=== PATIENT | male | born 1965 | race Caucasian/White ===

== ENCOUNTER 2017-07-20 07:31 | Outpatient (CLI) | payer BC, OTHER ==
--- NOTE | 2017-07-20 10:28 | RAD ---
DOUBLE CONTRAST UPPER GI: Date: 07/20/17 INDICATION: History of gastroesophageal reflux disease with need for preop clearance. TECHNIQUE: Thin barium, thick barium, and effervescent crystals were utilized for a double contrast upper GI. To roger fluoroscopic time was 3.3 minutes. Total exposure was 126.27 Gy*cm^2. FINDINGS: The esophagus demonstrated normal mucosal pattern. There were mild tertiary contractions of the mid t o distal esophagus. No intraluminal mass or stricture identified. No reflux was demonstrated during t he examination. 12.5 mm barium tablet passed without difficulty. No intraluminal mass or mucosal abnormality is evident within the stomach or proximal small bowel. IMPRESSION: 1. Mild tertiary contractions of the mid to distal esophagus can be seen with reflux esophagitis or mild presbyesophagus. 2. No definite intraluminal mass or stricture is identified. POS: FELIPE
== END 2017-07-20 07:32 | disposition home or self-care (01) ==
LOC: RAD 07:31
PROVIDERS: ATTEND Specialist
DX: Z01.818 Encounter for other preprocedural examination (principal); K21.9 Gastro-esophageal reflux disease without esophagitis; K22.8 Other specified diseases of esophagus
CPT/HCPCS: 74247

== ENCOUNTER 2017-10-01 11:05 | Outpatient (CLI) | payer OTHER | END 2017-10-01 11:06 | disposition home or self-care (01) | LOC: DTY/OP 11:05 | PROVIDERS: ATTEND Specialist | DX: Z01.818 Encounter for other preprocedural examination (principal); E66.01 Morbid (severe) obesity due to excess calories | CPT/HCPCS: 97802 ==

== ENCOUNTER 2018-05-20 12:38 | Outpatient (CLI) | payer OTHER ==
[2018-05-20 14:28] LABS: Anion Gap 11 mmol/L (10-20); BUN (Urea Nitrogen) 19 mg/dL (8.4-25.7); Calc. Creatinine Clearance 0 mL/min (70-130); Calcium 9.6 mg/dL (7.8-10.44); Carbon Dioxide 27 mmol/L (22-29); Chloride 104 mmol/L (98-107); Estimated GFR-MDRD 69; Glucose 95 mg/dL (70-105); Potassium 3.9 mmol/L (3.5-5.1); Sodium 138 mmol/L (136-145)
--- NOTE | 2018-05-21 09:03 | EKG ---
Test Reason : Blood Pressure : / mmHG Vent. Rate : 058 BPM Atrial Rate : 058 BPM P-R Int : 150 ms QRS Dur : 108 ms QT Int : 414 ms P-R-T Axes : 033 026 002 degrees QTc Int : 406 ms Sinus bradycardia Nonspecific T wave abnormality Abnormal ECG No previous ECGs available Confirmed by DR. Adolfo LEWIS ([id number]) on 05/21/2018 9:03:09 AM Referred By: YAYA Confirmed By:DR. Adolfo LEWIS
== END 2018-05-20 12:39 | disposition home or self-care (01) ==
LOC: LABBT 12:38
PROVIDERS: ATTEND Specialist
DX: Z01.818 Encounter for other preprocedural examination (principal); K21.9 Gastro-esophageal reflux disease without esophagitis; I10 Essential (primary) hypertension; E66.01 Morbid (severe) obesity due to excess calories; Z68.42 Body mass index [BMI] 45.0-49.9, adult
CPT/HCPCS: 80048; 93005; 93010

== ENCOUNTER 2018-05-24 11:00 | Inpatient (IN) | payer OTHER ==
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
[2018-05-26] MEDS ORDERED: Heparin 5,000 UNITS/ML VIAL ONE (06:37)
[2018-05-26] MEDS ORDERED: Ketorolac Tromethamine 30 MG/ML VIAL ONE (06:38)
[2018-05-26] MEDS ORDERED: Bupivacaine HCl 0.5%/Epinephrine 1:200,000/PF 30 ml Vial ONE (06:51)
[2018-05-26] MEDS ORDERED: Fentanyl 100 MCG/2 ML VIAL ONE ×2 (06:51→10:58)
[2018-05-26] MEDS ORDERED: CEFAZOLIN 2 GM/50 ML BAG ONE (07:07)
[2018-05-26] MEDS ORDERED: Rocuronium Bromide 50 MG/5 ML VIAL ONE (09:25)
[2018-05-26] MEDS ORDERED: Ondansetron HCl/PF 4 MG/2 ML Vial IVP PRN (09:56)
[2018-05-26] MEDS ORDERED: Promethazine HCl 25 MG/ML VIAL IM PRN (09:56)
[2018-05-26] MEDS ORDERED: Promethazine HCl 25 MG/ML VIAL SLOW IVP PRN (09:56)
[2018-05-26] MEDS ORDERED: SUGAMMADEX SODIUM 500 MG/5 ML VIAL ONE (10:11)
[2018-05-26] MEDS ORDERED: diphenhydrAMINE 50 MG/ML VIAL IVP PRN (10:26)
[2018-05-26] MEDS ORDERED: hydrALAZINE 20 MG/ML VIAL SLOW IVP PRN (10:26)
[2018-05-26] MEDS ORDERED: Morphine 4 MG/ML VIAL SLOW IVP PRN (10:26)
[2018-05-26] MEDS ORDERED: Morphine 2 MG/ML SYRINGE SLOW IVP PRN (10:26)
[2018-05-26] MEDS ORDERED: Ketorolac Tromethamine 30 MG/ML VIAL IVP PRN (10:31)
[2018-05-26] MEDS ORDERED: Sodium Chloride 0.9% (PF) 10 ML VIAL FS PRN (10:59)
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
[2018-05-26] MEDS ORDERED: Dexamethasone 20 MG/5 ML VIAL ONE (13:28)
[2018-05-26] MEDS ORDERED: Metoclopramide HCl 10 MG/2 ML VIAL ONE (13:28)
[2018-05-26] MEDS ORDERED: Rocuronium Bromide 10 MG/ML (10ML VIAL) ONE (13:28)
[2018-05-26] MEDS ORDERED: PHENYLEPHRINE-NS 100 MCG/ML 10 ML SYRINGE ONE (13:28)
[2018-05-26] MEDS ORDERED: PROPOFOL 200 MG/20 ML VIAL ONE (13:28)
[2018-05-26] MEDS ORDERED: Lidocaine 1% PF 5 ML VIAL ONE (13:28)
[2018-05-26] MEDS ORDERED: ePHEDrine 50 MG/ML VIAL ONE (13:28)
[2018-05-26] MEDS ORDERED: Glycopyrrolate 0.2 MG/ML 5 ML SYRINGE ONE (13:28)
[2018-05-26] MEDS: Lactated Ringer's 1,000 ML IV SCH ×3 (14:13→19:59)
[2018-05-26] MEDS: Acetaminophen 1,000 MG in Premix Bag 1 BAG IVPB SCH ×3 (14:13→21:32)
[2018-05-26 16:28] VITALS: BMI 45.1
[2018-05-26] MEDS: Ondansetron PF 4 MG/2 ML Vial IVP PRN (17:06)
[2018-05-26] MEDS ORDERED: Enoxaparin Sodium 40 MG/0.4 ML SYRINGE SC SCH (21:00)
[2018-05-27] MEDS: Lactated Ringer's 1,000 ML IV SCH (04:05)
[2018-05-27] MEDS: Acetaminophen 1,000 MG in Premix Bag 1 BAG IVPB SCH (04:32)
[2018-05-27 05:22] LABS: #Monocytes 0.8 thou/uL (0.11-0.59); #Neutrophils 8.2 thou/uL (1.40-6.50); %Basophils 0.1 % (0.0-1.0); %Eosinophils 0.4 % (0.0-10.0); %Monocytes 7.5 % (0.0-10.0); Hemoglobin 15.8 g/dL (14.0-18.0); Mean Corpuscular HGB CONC 32.1 g/dL (32.0-36.0); Mean Corpuscular Hemoglobin 28.6 pg (27.0-31.0); Mean Corpuscular Volume 89.1 fL (78.0-98.0); Platelet Count 200 thou/uL (130-400); RBC Distribution Width 12.5 % (11.5-14.5); Red Blood Cell (RBC) Count 5.53 mill/uL (4.70-6.10); White Blood Cell (WBC) Count 11.1 thou/uL (4.8-10.8)
[2018-05-27 06:38] LABS: Anion Gap 15 mmol/L (10-20); BUN (Urea Nitrogen) 10 mg/dL (8.4-25.7); Calc. Creatinine Clearance 149 mL/min (70-130); Calcium 9.3 mg/dL (7.8-10.44); Carbon Dioxide 24 mmol/L (22-29); Chloride 103 mmol/L (98-107); Estimated GFR-MDRD 84; Glucose 95 mg/dL (70-105); Potassium 4.3 mmol/L (3.5-5.1); Sodium 138 mmol/L (136-145)
[2018-05-27] MEDS ORDERED: Pantoprazole 40 MG VIAL IVP SCH (09:00)
[2018-05-27] MEDS ORDERED: Hydrochlorothiazide 25 MG TAB PO SCH (09:00)
[2018-05-27] MEDS ORDERED: Hydrocodone-Acetamin 15 ML UDCUP PO PRN (09:00)
[2018-05-27] MEDS ORDERED: Amlodipine 10 MG TAB PO SCH (09:00)
[2018-05-27] MEDS ORDERED: Aspirin Chewable 81 MG TAB PO SCH (09:00)
[2018-05-27] MEDS: Ondansetron PF 4 MG/2 ML Vial IVP PRN (09:50)
[2018-05-27 11:38] VITALS: TEMP 98.5
[2018-05-27] MEDS ORDERED: traMADol HCl 50 MG TAB PO PRN ×2 (14:23)
[2018-05-27] MEDS ORDERED: Acetaminophen 500 MG TAB PO PRN (14:24)
--- NOTE | 2018-05-27 14:39 | PRG ---
DATE OF SERVICE: 05/27/2018 SUBJECTIVE: Wes Sepulveda is doing well after laparoscopic sleeve gastrectomy, adhesiolysis, and repair of an enterotomy laparoscopically yesterday. He is tolerating his diet. He is not having any significant abdominal pain. OBJECTIVE: VITAL SIGNS: Temperature 98.5 degrees, pulse 57, respiratory rate 18, blood pressure 132/81. LUNGS: Clear to auscultation. CARDIAC: Regular rate and rhythm. No murmur or gallop. ABDOMEN: Soft, obese. Surgical laparoscopic wounds well healed. No wound problems. Good bowel sounds. He has passed flatus. He has not had any nausea, vomiting, or fever. He has good activity level. LABORATORY DATA: This morning, his white count is 11 and hemoglobin 15. Basic metabolic profile normal. ASSESSMENT AND PLAN: The patient is doing well after laparoscopic sleeve gastrectomy, adhesiolysis, and repair of enterotomy laparoscopically. He is discharged home today to continue bariatric liquids per protocol. He will take his vitamins. He is sent home with Lorbrigido Hernandez. He will follow up with me in my office per his appointment in 1 to 2 weeks. He was instructed that there are no activity restrictions and he will follow his dietary progression protocol as instructed. Job ID: [id number]
[2018-05-27 15:54] VITALS: BP 132/82
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
== END 2018-05-27 17:10 | disposition home or self-care (01) | DRG 621 ==
LOC: SURG A 05-26 05:37
PROVIDERS: ADMIT Specialist; ATTEND Specialist
PROC: 0DB64Z3 Excision of Stomach, Percutaneous Endoscopic Approach, Vertical (ICD-10-PCS; principal; 2018-05-26)
PROC: 0DQ84ZZ Repair Small Intestine, Percutaneous Endoscopic Approach (ICD-10-PCS; 2018-05-26)
PROC: 0DJ08ZZ Inspection of Upper Intestinal Tract, Via Natural or Artificial Opening Endoscopic (ICD-10-PCS; 2018-05-26)
DX: E66.01 Morbid (severe) obesity due to excess calories (principal); I10 Essential (primary) hypertension; G47.30 Sleep apnea, unspecified; K21.9 Gastro-esophageal reflux disease without esophagitis; K66.0 Peritoneal adhesions (postprocedural) (postinfection); Z87.828 Personal history of other (healed) physical injury and trauma; Z68.42 Body mass index [BMI] 45.0-49.9, adult; Z87.19 Personal history of other diseases of the digestive system; Z79.82 Long term (current) use of aspirin; Z79.899 Other long term (current) drug therapy
CPT/HCPCS: 36415; 80048; 85025; 88307; 88312; 94760; J0131; J0670; J1100; J1644; J1650; J1885; J2001; J2270; J2405; J2704; J2765; J3010; J3490